=== PATIENT | female | born 1995 | race Caucasian/White ===

== ENCOUNTER 2018-06-15 09:18 | Inpatient (IN) | payer SELFPAY ==
[~2018-06-15] VITALS: Ht 154.9 cm; Wt 83.1 kg
[~2018-06-15 09:18] MED LIST: NO MEDS
[2018-06-15 10:12] LABS: APPEARANCE,URINE CLOUDY (CLEAR); BILIRUBIN,URINE PRELIM. POSITIVE (NEGATIVE); GLUCOSE, URINE (UA) NEGATIVE (NEGATIVE); KETONES,URINE 40 mg/dL (NEGATIVE); LEUKOCYTE ESTERASE ,URINE SMALL (NEGATIVE); NITRATE,URINE POSITIVE (NEGATIVE); OCCULT BLOOD,URINE NEGATIVE (NEGATIVE); PH,URINE 5.5 (5.0-8.0); PROTEIN,URINE POS 1+ (NEGATIVE)
[2018-06-15 10:23] LABS: BACTERIA,URINE Moderate /HPF (None Seen)
[2018-06-15 10:24] LABS: MUCUS,URINE Moderate LPF (None Seen); SQUAMOUS EPITHELIAL CELL,UR Moderate /LPF (None Seen)
[2018-06-15] MEDS ORDERED: SODIUM CHLORIDE 0.9% 1,000 ML IV ONE (10:41)
[2018-06-15] MEDS ORDERED: ONDANSETRON HCL 4 MG/2 ML VIAL IVP ONE ×2 (10:45→12:30)
[2018-06-15 10:53] LABS: BASOPHILS % (AUTO) 0.4 % (0.0-2.0); EOSINOPHILS % (AUTO) 0.1 % (1.0-6.0); HEMATOCRIT 44.2 % (36-46); HEMOGLOBIN 15.5 g/dL (12.0-16.0); LYMPHOCYTES # (AUTO) 1.4 K/uL (1.0-4.8); MEAN CORPUSCULAR HEMOGLOBIN 33.1 pg (26.0-34.0); MEAN CORPUSCULAR HGB CONC 35.1 G/dL (31.0-37.0); MEAN CORPUSCULAR VOLUME 94 fL (80-100); MONOCYTES # (AUTO) 0.8 K/uL (0.1-1.0); MONOCYTES % (AUTO) 5.3 % (2.0-9.0); NEUTROPHILS # (AUTO) 13.3 K/uL (1.8-7.7); NEUTROPHILS % (AUTO) 85.2 % (40.0-70.0); PLATELET COUNT (AUTO) 272 K/uL (150-450); RED BLOOD CELL COUNT(AUTO) 4.69 MIL/uL (4.00-5.20); RED CELL DISTRIBUTION WIDTH 14.4 % (11.5-14.5)
[2018-06-15 11:20] LABS: ALANINE AMINOTRANSFERASE 276 U/L (12-78); ALBUMIN 3.9 g/dL (3.4-5.0); ALKALINE PHOSPHATASE 111 U/L (46-116); ANION GAP 11 mmol/L (8-16); ASPARTATE AMINOTRANSFERASE 906 U/L (15-37); BILIRUBIN,TOTAL 1.8 mg/dL (0.1-1.0); CALCIUM, TOTAL 9.6 mg/dL (8.8-10.5); CARBON DIOXIDE 30 mmol/L (22-29); CHLORIDE 97 mmol/L (98-107); CREATININE 0.74 mg/dL (0.60-1.30); GLOMERULAR FILTR. RATE CALC > 60 mL/min (>60); GLUCOSE,RANDOM 101 mg/dL (70-110); HCG,QUANTITATIVE < 1 mIU/mL (0-6); SODIUM SERUM 138 mmol/L (136-145); UREA NITROGEN, BLOOD 10 mg/dL (7-18)
[2018-06-15 11:31] LABS: POTASSIUM 2.9 mmol/L (3.5-5.1)
[2018-06-15] MEDS ORDERED: LORazepam 2 MG/ML VIAL IVP ONE (12:30)
[2018-06-15] MEDS ORDERED: BARIUM SULFATE 0.1% SUSPENSION 450 ML BOTTLE PO ONE (12:30)
[2018-06-15] MEDS ORDERED: POTASSIUM CHL 40 MEQ/D5-0.45NS 1,000 ML IV ONE (12:30)
[2018-06-15] MEDS ORDERED: CefTRIAXone SODIUM 1 GM in DEXTROSE 5%-WATER 10 ML IV ONE (12:30)
[2018-06-15] MEDS ORDERED: KETOROLAC TROMETHAMINE 30 MG/ML VIAL IVP ONE ×2 (12:30→19:00)
[2018-06-15] MEDS ORDERED: IOVERSOL 350 MG/ML 150 ML VIAL ONE (13:37)
[2018-06-15] MEDS ORDERED: SODIUM CHLORIDE 0.9% 100 ML ONE (13:37)
[2018-06-15 14:22] LABS: LIPASE 976 U/L (73-393)
[2018-06-15 15:24] LABS: ANION GAP 7 mmol/L (8-16); CALCIUM, TOTAL 8.2 mg/dL (8.8-10.5); CARBON DIOXIDE 28 mmol/L (22-29); CHLORIDE 99 mmol/L (98-107); CREATININE 0.69 mg/dL (0.60-1.30); GLOMERULAR FILTR. RATE CALC > 60 mL/min (>60); GLUCOSE,RANDOM 77 mg/dL (70-110); POTASSIUM 3.2 mmol/L (3.5-5.1); SODIUM SERUM 134 mmol/L (136-145); UREA NITROGEN, BLOOD 8 mg/dL (7-18)
[2018-06-15 15:30] LABS: ALANINE AMINOTRANSFERASE 228 U/L (12-78); ALBUMIN 3.1 g/dL (3.4-5.0); ALKALINE PHOSPHATASE 88 U/L (46-116); ASPARTATE AMINOTRANSFERASE 639 U/L (15-37); TOTAL PROTEIN, SERUM 6.4 g/dL (6.4-8.2)
[2018-06-15] MEDS ORDERED: GADOBUTROL 1 MMOL/ML 10 ML VIAL IVP ONE (15:53)
[2018-06-15] MEDS ORDERED: CIPROFLOXACIN 400 MG/D5% WATER 200 ML IV ONE (16:30)
[2018-06-15] MEDS ORDERED: CeFAZolin 1 GM/DEXTROSE 50 ML IV ONE (16:30)
[2018-06-15] MEDS ORDERED: ONDANSETRON HCL 4 MG/2 ML VIAL IVP PRN ×2 (19:00→21:15)
[2018-06-15] MEDS ORDERED: MORPHINE SULFATE 2 MG/ML SYRINGE IVP PRN (19:00)
[2018-06-15] MEDS ORDERED: 0.9% SODIUM CHLORIDE 10 ML SYRINGE IVP PRN (19:00)
[2018-06-15 20:08] VITALS: BP 129/81
[2018-06-15] MEDS ORDERED: MAGNESIUM HYDROXIDE SUSPENSION 30 ML UDCUP PO PRN (21:15)
[2018-06-15] MEDS ORDERED: POTASSIUM CHL 10 MEQ/WATER 50 ML IV PRN (21:15)
[2018-06-15] MEDS: SODIUM CHLORIDE 0.9% 1,000 ML IV SCH (21:25)
[2018-06-15] MEDS: POTASSIUM CHLORIDE 20 MEQ ER TABLET PO PRN (21:25)
[2018-06-15] MEDS: MORPHINE SULFATE 2 MG/ML SYRINGE IVP PRN (21:35)
[2018-06-15 23:40] VITALS: BP 135/68
[2018-06-16 00:05] LABS: AMPHET/METH SCREEN,URINE NEGATIVE (NEGATIVE); BARBITURATE SCREEN, URINE NEGATIVE (NEGATIVE); BENZODIAZEPINES SCREEN,URINE NEGATIVE (NEGATIVE); CANNABINOID SCREEN,URINE POSITIVE (NEGATIVE); COCAINE SCREEN,URINE NEGATIVE (NEGATIVE); METHADONE SCREEN, URINE NEGATIVE (NEGATIVE); OPIATE SCREEN,URINE POSITIVE (NEGATIVE); PHENCYCLIDINE SCREEN,URINE NEGATIVE (NEGATIVE)
[2018-06-16 05:51] VITALS: BP 137/88
[2018-06-16 06:27] LABS: BASOPHILS % (AUTO) 0.4 % (0.0-2.0); HEMATOCRIT 38.9 % (36-46); HEMOGLOBIN 13.7 g/dL (12.0-16.0); LYMPHOCYTES # (AUTO) 2.3 K/uL (1.0-4.8); LYMPHOCYTES % (AUTO) 23.3 % (22.0-44.0); MEAN CORPUSCULAR HEMOGLOBIN 33.7 pg (26.0-34.0); MEAN CORPUSCULAR HGB CONC 35.2 G/dL (31.0-37.0); MEAN CORPUSCULAR VOLUME 96 fL (80-100); MONOCYTES # (AUTO) 0.9 K/uL (0.1-1.0); MONOCYTES % (AUTO) 9.2 % (2.0-9.0); NEUTROPHILS # (AUTO) 6.6 K/uL (1.8-7.7); NEUTROPHILS % (AUTO) 65.1 % (40.0-70.0); PLATELET COUNT (AUTO) 233 K/uL (150-450); RED BLOOD CELL COUNT(AUTO) 4.06 MIL/uL (4.00-5.20); RED CELL DISTRIBUTION WIDTH 14.2 % (11.5-14.5)
[2018-06-16 06:43] LABS: ALANINE AMINOTRANSFERASE 201 U/L (12-78); ALBUMIN 2.9 g/dL (3.4-5.0); ALKALINE PHOSPHATASE 83 U/L (46-116); ANION GAP 8 mmol/L (8-16); ASPARTATE AMINOTRANSFERASE 400 U/L (15-37); BILIRUBIN,TOTAL 1.1 mg/dL (0.1-1.0); CALCIUM, TOTAL 8.3 mg/dL (8.8-10.5); CARBON DIOXIDE 26 mmol/L (22-29); CHLORIDE 101 mmol/L (98-107); CREATININE 0.48 mg/dL (0.60-1.30); GLOMERULAR FILTR. RATE CALC > 60 mL/min (>60); GLUCOSE,RANDOM 76 mg/dL (70-110); LIPASE 663 U/L (73-393); SODIUM SERUM 135 mmol/L (136-145); TOTAL PROTEIN, SERUM 6.2 g/dL (6.4-8.2); UREA NITROGEN, BLOOD 6 mg/dL (7-18)
[2018-06-16] MEDS: POTASSIUM CHLORIDE 20 MEQ ER TABLET PO PRN ×2 (06:53→14:22)
[2018-06-16 07:03] VITALS: BP 123/77
[2018-06-16] MEDS: PANTOPRAZOLE SODIUM 40 MG/VIAL IVP SCH (08:14)
[2018-06-16] MEDS: DOCUSATE SODIUM 100 MG CAPSULE PO SCH ×2 (08:14→19:49)
[2018-06-16] MEDS: MORPHINE SULFATE 2 MG/ML SYRINGE IVP PRN ×4 (08:18→23:54)
[2018-06-16 11:31] VITALS: BP 130/91
[2018-06-16] MEDS: CefTRIAXone SODIUM 1 GM in DEXTROSE 5%-WATER 10 ML IV SCH (12:09)
[2018-06-16 15:33] VITALS: BP 139/71
[2018-06-16] MEDS: ACETAMINOPHEN 325 MG TABLET PO PRN (15:41)
[2018-06-16 19:40] VITALS: BP 128/80
[2018-06-17 00:04] VITALS: BP 94/56
[2018-06-17 03:58] VITALS: BP 132/78
[2018-06-17] MEDS: MORPHINE SULFATE 2 MG/ML SYRINGE IVP PRN ×2 (04:37→08:28)
[2018-06-17 06:21] LABS: ALANINE AMINOTRANSFERASE 157 U/L (12-78); ALKALINE PHOSPHATASE 80 U/L (46-116); ANION GAP 9 mmol/L (8-16); ASPARTATE AMINOTRANSFERASE 202 U/L (15-37); BILIRUBIN,TOTAL 0.8 mg/dL (0.1-1.0); CARBON DIOXIDE 25 mmol/L (22-29); CHLORIDE 100 mmol/L (98-107); CREATININE 0.48 mg/dL (0.60-1.30); GLOMERULAR FILTR. RATE CALC > 60 mL/min (>60); GLUCOSE,RANDOM 78 mg/dL (70-110); LIPASE 533 U/L (73-393); POTASSIUM 3.5 mmol/L (3.5-5.1); SODIUM SERUM 134 mmol/L (136-145); TOTAL PROTEIN, SERUM 6.4 g/dL (6.4-8.2); UREA NITROGEN, BLOOD 4 mg/dL (7-18)
[2018-06-17 07:34] VITALS: BP 134/57
[2018-06-17] MEDS: PANTOPRAZOLE SODIUM 40 MG/VIAL IVP SCH (08:18)
[2018-06-17] MEDS: SODIUM CHLORIDE 0.9% 1,000 ML IV SCH (08:18)
[2018-06-17] MEDS: DOCUSATE SODIUM 100 MG CAPSULE PO SCH (08:19)
[2018-06-17 11:10] VITALS: BP 126/82
[2018-06-17] MEDS: ACETAMINOPHEN 325 MG TABLET PO PRN (13:16)
[2018-06-17] MEDS: CefTRIAXone SODIUM 1 GM in DEXTROSE 5%-WATER 10 ML IV SCH (13:17)
== END 2018-06-17 15:30 | disposition home or self-care (01) | DRG 432 ==
LOC: EMS 09:19 → 6N 18:57
PROVIDERS: ADMIT Internal Medicine; ATTEND Internal Medicine
DX: K70.10 Alcoholic hepatitis without ascites (principal); K85.90 Acute pancreatitis without necrosis or infection, unspecified; N39.0 Urinary tract infection, site not specified; F17.210 Nicotine dependence, cigarettes, uncomplicated; F12.90 Cannabis use, unspecified, uncomplicated; R74.0 Nonspecific elevation of levels of transaminase and lactic acid dehydrogenase [LDH]; F10.10 Alcohol abuse, uncomplicated; Y90.9 Presence of alcohol in blood, level not specified; E66.9 Obesity, unspecified; Z68.34 Body mass index [BMI] 34.0-34.9, adult
CPT/HCPCS: 74177; 74183; 80307; 84132; 87086; 96365; 96368; 96375; 96376; 99285; A9585; C9113; J0690; J0696; J0744; J1885; J2060; J2270; J2405; J3480; J7030; J7050; J7060

== ENCOUNTER 2018-12-02 15:00 | Emergency (ER) | payer SELFPAY ==
[~2018-12-02] VITALS: Ht 154.9 cm; Wt 81.5 kg
[2018-12-02] MEDS ORDERED: SODIUM CHLORIDE 0.9% 1,000 ML IV ONE (16:00)
[2018-12-02 16:03] LABS: APPEARANCE,URINE CLOUDY (CLEAR); GLUCOSE, URINE (UA) NEGATIVE (NEGATIVE); KETONES,URINE TRACE mg/dL (NEGATIVE); LEUKOCYTE ESTERASE ,URINE MODERATE (NEGATIVE); NITRATE,URINE NEGATIVE (NEGATIVE); OCCULT BLOOD,URINE TRACE (NEGATIVE); PH,URINE 7.5 (5.0-8.0); PROTEIN,URINE POS 1+ (NEGATIVE)
[2018-12-02 16:09] LABS: BASOPHILS % (AUTO) 0.3 % (0.0-2.0); EOSINOPHILS % (AUTO) 0 % (1.0-6.0); HEMATOCRIT 46.6 % (36-46); HEMOGLOBIN 15.9 g/dL (12.0-16.0); LYMPHOCYTES # (AUTO) 1.7 K/uL (1.0-4.8); LYMPHOCYTES % (AUTO) 11.4 % (22.0-44.0); MEAN CORPUSCULAR HEMOGLOBIN 32.5 pg (26.0-34.0); MEAN CORPUSCULAR HGB CONC 34.1 G/dL (31.0-37.0); MEAN CORPUSCULAR VOLUME 95 fL (80-100); MONOCYTES # (AUTO) 1.4 K/uL (0.1-1.0); NEUTROPHILS # (AUTO) 11.9 K/uL (1.8-7.7); NEUTROPHILS % (AUTO) 79.3 % (40.0-70.0); PLATELET COUNT (AUTO) 286 K/uL (150-450); RED BLOOD CELL COUNT(AUTO) 4.91 MIL/uL (4.00-5.20); RED CELL DISTRIBUTION WIDTH 14.6 % (11.5-14.5)
[2018-12-02] MEDS ORDERED: FAMOTIDINE 10 MG/ML 2 ML VIAL IVP ONE (16:15)
[2018-12-02] MEDS ORDERED: DICYCLOMINE HCL 20 MG TABLET PO ONE (16:15)
[2018-12-02 16:18] LABS: BILIRUBIN,URINE PRELIM. POSITIVE (NEGATIVE)
[2018-12-02 16:21] LABS: RBC,URINE 0-2 /HPF (0-2)
[2018-12-02 16:23] LABS: BACTERIA,URINE Rare /HPF (None Seen); SQUAMOUS EPITHELIAL CELL,UR Few /LPF (None Seen)
[2018-12-02 16:33] LABS: ANION GAP 10 mmol/L (8-16); CALCIUM, TOTAL 9.5 mg/dL (8.8-10.5); CARBON DIOXIDE 33 mmol/L (22-29); CHLORIDE 95 mmol/L (98-107); CREATININE 0.69 mg/dL (0.60-1.30); GLOMERULAR FILTR. RATE CALC > 60 mL/min (>60); GLUCOSE,RANDOM 117 mg/dL (70-110); POTASSIUM 3.3 mmol/L (3.5-5.1); SODIUM SERUM 138 mmol/L (136-145); UREA NITROGEN, BLOOD 6 mg/dL (7-18)
[2018-12-02 16:44] LABS: ALANINE AMINOTRANSFERASE 69 U/L (12-78); ALBUMIN 3.9 g/dL (3.4-5.0); ALKALINE PHOSPHATASE 133 U/L (46-116); ASPARTATE AMINOTRANSFERASE 102 U/L (15-37); BILIRUBIN,TOTAL 1.1 mg/dL (0.1-1.0); HCG,QUANTITATIVE < 1 mIU/mL (0-6); LIPASE 141 U/L (73-393); TOTAL PROTEIN, SERUM 8.5 g/dL (6.4-8.2)
[2018-12-02] MEDS ORDERED: ONDANSETRON HCL 4 MG/2 ML VIAL IVP ONE (16:45)
[2018-12-02 18:04] VITALS: BP 141/98
== END 2018-12-02 18:15 | disposition home or self-care (01) ==
LOC: EMS 15:01
DX: R11.2 Nausea with vomiting, unspecified (principal); D72.829 Elevated white blood cell count, unspecified; R74.0 Nonspecific elevation of levels of transaminase and lactic acid dehydrogenase [LDH]; R10.9 Unspecified abdominal pain; F12.90 Cannabis use, unspecified, uncomplicated; F17.210 Nicotine dependence, cigarettes, uncomplicated
CPT/HCPCS: 36415; 76705; 80053; 81001; 83690; 84702; 85025; 87086; 96361; 96374; 96375; 99284; J2405; J3490; J7030

== ENCOUNTER 2019-07-20 06:43 | Inpatient (IN) | payer SELFPAY ==
[~2019-07-20] VITALS: Ht 154.9 cm; Wt 80.6 kg
[2019-07-20 07:21] LABS: BASOPHILS % (AUTO) 0.4 % (0.0-2.0); EOSINOPHILS % (AUTO) 0.4 % (1.0-6.0); HEMATOCRIT 46.9 % (36-46); HEMOGLOBIN 15.9 g/dL (12.0-16.0); LYMPHOCYTES # (AUTO) 1.7 K/uL (1.0-4.8); MEAN CORPUSCULAR VOLUME 97 fL (80-100); MONOCYTES % (AUTO) 8.6 % (2.0-9.0); NEUTROPHILS # (AUTO) 8.7 K/uL (1.8-7.7); NEUTROPHILS % (AUTO) 75.6 % (40.0-70.0); PLATELET COUNT (AUTO) 313 K/uL (150-450); RED BLOOD CELL COUNT(AUTO) 4.83 MIL/uL (4.00-5.20); RED CELL DISTRIBUTION WIDTH 14.2 % (11.5-14.5)
[2019-07-20 07:42] LABS: APPEARANCE,URINE TURBID (CLEAR); GLUCOSE, URINE (UA) NEGATIVE (NEGATIVE); KETONES,URINE 15 mg/dL (NEGATIVE); LEUKOCYTE ESTERASE ,URINE LARGE (NEGATIVE); NITRATE,URINE POSITIVE (NEGATIVE); OCCULT BLOOD,URINE SMALL (NEGATIVE); PH,URINE 5.5 (5.0-8.0); PROTEIN,URINE POS 1+ (NEGATIVE)
[2019-07-20 07:43] LABS: BILIRUBIN,URINE PRELIM. POSITIVE (NEGATIVE)
[2019-07-20] MEDS ORDERED: SODIUM CHLORIDE 0.9% 1,000 ML IV ONE (07:45)
[2019-07-20] MEDS ORDERED: ONDANSETRON HCL 4 MG/2 ML VIAL IVP ONE ×2 (07:45→11:15)
[2019-07-20] MEDS ORDERED: ACETAMINOPHEN 500 MG TABLET PO ONE (07:45)
[2019-07-20] MEDS ORDERED: KETOROLAC TROMETHAMINE 30 MG/ML VIAL IVP ONE (07:45)
[2019-07-20 07:46] LABS: ALANINE AMINOTRANSFERASE 69 U/L (12-78); ALBUMIN 3.8 g/dL (3.4-5.0); ALKALINE PHOSPHATASE 129 U/L (46-116); ANION GAP 7 mmol/L (8-16); ASPARTATE AMINOTRANSFERASE 137 U/L (15-37); BILIRUBIN,TOTAL 2.1 mg/dL (0.1-1.0); CALCIUM, TOTAL 9.6 mg/dL (8.8-10.5); CHLORIDE 87 mmol/L (98-107); CREATININE 0.72 mg/dL (0.60-1.30); GLOMERULAR FILTR. RATE CALC > 60 mL/min (>60); GLUCOSE,RANDOM 128 mg/dL (70-110); HCG,QUANTITATIVE < 1 mIU/mL (0-6); LIPASE 345 U/L (73-393); SODIUM SERUM 135 mmol/L (136-145); TOTAL PROTEIN, SERUM 7.8 g/dL (6.4-8.2); UREA NITROGEN, BLOOD 11 mg/dL (7-18)
[2019-07-20 07:49] LABS: BACTERIA,URINE Many /HPF (None Seen); SQUAMOUS EPITHELIAL CELL,UR Many /LPF (None Seen)
[2019-07-20 07:51] LABS: CARBON DIOXIDE 41 mmol/L (22-29)
[2019-07-20] MEDS ORDERED: POTASSIUM CHL 10 MEQ/WATER 50 ML IV ONE (08:30)
[2019-07-20] MEDS ORDERED: POTASSIUM CHLORIDE 40 MEQ in SODIUM CHLORIDE 0.45% 1,000 ML IV ONE (08:45)
[2019-07-20] MEDS ORDERED: 0.9% SODIUM CHLORIDE 10 ML SYRINGE IVP PRN (09:30)
[2019-07-20] MEDS ORDERED: POTASSIUM CHLORIDE 10% 40 MEQ/30 ML LIQUID UDCUP PO ONE ×2 (09:30→10:30)
[2019-07-20] MEDS ORDERED: ONDANSETRON HCL 4 MG/2 ML VIAL IVP PRN (09:30)
[2019-07-20] MEDS ORDERED: ACETAMINOPHEN 325 MG TABLET PO PRN ×2 (09:30→12:15)
[2019-07-20] MEDS ORDERED: METOCLOPRAMIDE HCL 5 MG/ML 2 ML VIAL IVP ONE (11:45)
[2019-07-20] MEDS ORDERED: MAGNESIUM HYDROXIDE SUSPENSION 30 ML UDCUP PO PRN (12:15)
[2019-07-20] MEDS ORDERED: BISACODYL 10 MG RECTAL RECTAL SUPPOSITORY PR PRN (12:15)
[2019-07-20] MEDS ORDERED: HYDROCODONE/ACETAMINOPHEN 5-325 MG TABLET PO PRN (12:15)
[2019-07-20] MEDS ORDERED: ZOLPIDEM TARTRATE 5 MG TABLET PO PRN (12:15)
[2019-07-20] MEDS ORDERED: POTASSIUM CHLORIDE 20 MEQ ER TABLET PO PRN (12:15)
[2019-07-20] MEDS: MetroNIDAZOLE 500 MG/NACL 100 ML IV SCH ×2 (13:35→22:07)
[2019-07-20] MEDS: CIPROFLOXACIN 400 MG/D5% WATER 200 ML IV SCH (14:40)
[2019-07-20] MEDS: POTASSIUM CHLORIDE 40 MEQ in SODIUM CHLORIDE 0.9% 1,000 ML IV SCH (15:54)
[2019-07-20] MEDS ORDERED: POTASSIUM CHL 10 MEQ/WATER 50 ML IV PRN (16:15)
[2019-07-20] MEDS: POTASSIUM CHL 10 MEQ/WATER 50 ML IV PRN ×4 (16:23→22:16)
[2019-07-20 17:39] VITALS: BP 131/63
[2019-07-20 19:51] VITALS: BP 137/86
[2019-07-20] MEDS: ONDANSETRON HCL 4 MG/2 ML VIAL IVP PRN (20:16)
[2019-07-20] MEDS: DOCUSATE SODIUM 100 MG CAPSULE PO SCH (20:17)
[2019-07-20] MEDS ORDERED: SODIUM CHLORIDE 0.9% 250 ML IV ONE (21:20)
[2019-07-20 23:16] VITALS: BP 128/74
[2019-07-21] MEDS: POTASSIUM CHLORIDE 40 MEQ in SODIUM CHLORIDE 0.9% 1,000 ML IV SCH (00:03)
[2019-07-21] MEDS: POTASSIUM CHL 10 MEQ/WATER 50 ML IV PRN ×12 (00:18→23:07)
[2019-07-21] MEDS: ONDANSETRON HCL 4 MG/2 ML VIAL IVP PRN (01:46)
[2019-07-21] MEDS: CIPROFLOXACIN 400 MG/D5% WATER 200 ML IV SCH ×2 (01:50→14:42)
[2019-07-21 04:47] VITALS: BP 126/68
[2019-07-21] MEDS: MetroNIDAZOLE 500 MG/NACL 100 ML IV SCH ×3 (05:24→21:02)
[2019-07-21 06:25] LABS: BASOPHILS % (AUTO) 0.4 % (0.0-2.0); EOSINOPHILS % (AUTO) 0.4 % (1.0-6.0); HEMATOCRIT 41.1 % (36-46); HEMOGLOBIN 13.8 g/dL (12.0-16.0); LYMPHOCYTES # (AUTO) 1.9 K/uL (1.0-4.8); LYMPHOCYTES % (AUTO) 20.6 % (22.0-44.0); MEAN CORPUSCULAR HEMOGLOBIN 33.2 pg (26.0-34.0); MEAN CORPUSCULAR HGB CONC 33.7 G/dL (31.0-37.0); MEAN CORPUSCULAR VOLUME 99 fL (80-100); MONOCYTES # (AUTO) 0.8 K/uL (0.1-1.0); MONOCYTES % (AUTO) 8.5 % (2.0-9.0); NEUTROPHILS # (AUTO) 6.5 K/uL (1.8-7.7); NEUTROPHILS % (AUTO) 70.1 % (40.0-70.0); PLATELET COUNT (AUTO) 258 K/uL (150-450); RED BLOOD CELL COUNT(AUTO) 4.17 MIL/uL (4.00-5.20); RED CELL DISTRIBUTION WIDTH 14.2 % (11.5-14.5)
[2019-07-21 06:45] LABS: ANION GAP 8 mmol/L (8-16); CALCIUM, TOTAL 8.7 mg/dL (8.8-10.5); CARBON DIOXIDE 34 mmol/L (22-29); CHLORIDE 94 mmol/L (98-107); CREATININE 0.59 mg/dL (0.60-1.30); GLOMERULAR FILTR. RATE CALC > 60 mL/min (>60); GLUCOSE,RANDOM 94 mg/dL (70-110); SODIUM SERUM 136 mmol/L (136-145); UREA NITROGEN, BLOOD 8 mg/dL (7-18)
[2019-07-21 06:51] LABS: POTASSIUM 2.4 mmol/L (3.5-5.1)
[2019-07-21 07:35] VITALS: BP 140/56
[2019-07-21] MEDS: MORPHINE SULFATE 2 MG/ML SYRINGE IVP PRN (08:09)
[2019-07-21] MEDS: PANTOPRAZOLE SODIUM 40 MG DR TABLET PO SCH (08:09)
[2019-07-21] MEDS: DOCUSATE SODIUM 100 MG CAPSULE PO SCH ×2 (08:09→21:00)
[2019-07-21 11:24] VITALS: BP 156/65
[2019-07-21] MEDS ORDERED: MAGNESIUM SULFATE 4 GM/WATER 100 ML IV PRN (11:30)
[2019-07-21] MEDS ORDERED: MAGNESIUM SULFATE 2 GM/WATER 50 ML IV PRN (11:30)
[2019-07-21] MEDS ORDERED: SODIUM CHLORIDE 0.9% 250 ML IV ONE (15:33)
[2019-07-21 16:14] VITALS: BP 135/79
[2019-07-21] MEDS: MAGNESIUM OXIDE 400 MG TABLET PO PRN (16:55)
[2019-07-21 19:49] VITALS: BP 138/77
[2019-07-22] MEDS: ONDANSETRON HCL 4 MG/2 ML VIAL IVP PRN ×3 (02:03→19:45)
[2019-07-22] MEDS: CIPROFLOXACIN 400 MG/D5% WATER 200 ML IV SCH ×2 (02:08→15:40)
[2019-07-22] MEDS: MAGNESIUM OXIDE 400 MG TABLET PO PRN ×4 (02:56→21:35)
[2019-07-22] MEDS: POTASSIUM CHL 10 MEQ/WATER 50 ML IV PRN ×3 (03:02→05:18)
[2019-07-22 03:13] VITALS: BP 148/77
[2019-07-22] MEDS: POTASSIUM CHLORIDE 40 MEQ in SODIUM CHLORIDE 0.9% 1,000 ML IV SCH ×2 (04:19→21:34)
[2019-07-22] MEDS: MetroNIDAZOLE 500 MG/NACL 100 ML IV SCH ×3 (05:19→21:35)
[2019-07-22 06:08] LABS: BASOPHILS % (AUTO) 0.2 % (0.0-2.0); EOSINOPHILS % (AUTO) 0.3 % (1.0-6.0); HEMATOCRIT 40.8 % (36-46); HEMOGLOBIN 13.6 g/dL (12.0-16.0); LYMPHOCYTES # (AUTO) 1.8 K/uL (1.0-4.8); LYMPHOCYTES % (AUTO) 17.5 % (22.0-44.0); MEAN CORPUSCULAR HEMOGLOBIN 33.2 pg (26.0-34.0); MEAN CORPUSCULAR HGB CONC 33.3 G/dL (31.0-37.0); MEAN CORPUSCULAR VOLUME 100 fL (80-100); MONOCYTES # (AUTO) 0.8 K/uL (0.1-1.0); MONOCYTES % (AUTO) 7.6 % (2.0-9.0); NEUTROPHILS # (AUTO) 7.5 K/uL (1.8-7.7); NEUTROPHILS % (AUTO) 74.4 % (40.0-70.0); PLATELET COUNT (AUTO) 260 K/uL (150-450); RED BLOOD CELL COUNT(AUTO) 4.09 MIL/uL (4.00-5.20); RED CELL DISTRIBUTION WIDTH 14.8 % (11.5-14.5)
[2019-07-22 06:23] LABS: ANION GAP 6 mmol/L (8-16); CARBON DIOXIDE 32 mmol/L (22-29); CHLORIDE 99 mmol/L (98-107); CREATININE 0.64 mg/dL (0.60-1.30); GLOMERULAR FILTR. RATE CALC > 60 mL/min (>60); GLUCOSE,RANDOM 116 mg/dL (70-110); POTASSIUM 3.2 mmol/L (3.5-5.1); SODIUM SERUM 137 mmol/L (136-145); UREA NITROGEN, BLOOD 6 mg/dL (7-18)
[2019-07-22 07:39] VITALS: BP 147/76
[2019-07-22] MEDS: DOCUSATE SODIUM 100 MG CAPSULE PO SCH ×2 (08:27→21:00)
[2019-07-22] MEDS: MORPHINE SULFATE 2 MG/ML SYRINGE IVP PRN ×2 (08:37→19:45)
[2019-07-22] MEDS: POTASSIUM CHLORIDE 10% 40 MEQ/30 ML LIQUID UDCUP PO PRN ×2 (10:05→16:47)
[2019-07-22] MEDS: METOCLOPRAMIDE HCL 5 MG/ML 2 ML VIAL IVP SCH ×2 (10:06→15:38)
[2019-07-22] MEDS: PANTOPRAZOLE SODIUM 40 MG DR TABLET PO SCH (10:06)
[2019-07-22 11:31] VITALS: BP 134/94
[2019-07-22] MEDS ORDERED: ONDA4 PO (11:51)
[2019-07-22 15:36] VITALS: BP 141/98
[2019-07-22 19:42] VITALS: BP 137/77
[2019-07-22] MEDS ORDERED: SODIUM CHLORIDE 0.9% 100 ML ONE (20:52)
== END 2019-07-22 22:50 | disposition home or self-care (01) | DRG 392 ==
LOC: EMS 06:45 → 5S 16:15
PROVIDERS: ADMIT Internal Medicine; ATTEND Internal Medicine
DX: K52.9 Noninfective gastroenteritis and colitis, unspecified (principal); E87.1 Hypo-osmolality and hyponatremia; E87.6 Hypokalemia; F17.210 Nicotine dependence, cigarettes, uncomplicated; F12.90 Cannabis use, unspecified, uncomplicated
CPT/HCPCS: 83735; 84132; 96374; 96375; G0378; J0744; J1885; J2270; J2405; J2765; J3480; J3490; J7030; J7050

== ENCOUNTER 2019-11-19 17:25 | Inpatient (IN) | payer MEDICAID ==
[~2019-11-19] VITALS: Ht 152.4 cm; Wt 74.2 kg
[~2019-11-19 17:25] MED LIST changes: -NO MEDS; +ONDA-104 PO
[2019-11-19 18:09] LABS: BASOPHILS % (AUTO) 0.4 % (0.0-2.0); EOSINOPHILS % (AUTO) 0 % (1.0-6.0); HEMATOCRIT 45.5 % (36-46); HEMOGLOBIN 15.6 g/dL (12.0-16.0); LYMPHOCYTES # (AUTO) 1.8 K/uL (1.0-4.8); LYMPHOCYTES % (AUTO) 11.3 % (22.0-44.0); MEAN CORPUSCULAR HEMOGLOBIN 35.1 pg (26.0-34.0); MEAN CORPUSCULAR HGB CONC 34.3 G/dL (31.0-37.0); MEAN CORPUSCULAR VOLUME 102 fL (80-100); MONOCYTES # (AUTO) 1.2 K/uL (0.1-1.0); MONOCYTES % (AUTO) 7.3 % (2.0-9.0); NEUTROPHILS # (AUTO) 13.1 K/uL (1.8-7.7); PLATELET COUNT (AUTO) 352 K/uL (150-450); RED BLOOD CELL COUNT(AUTO) 4.45 MIL/uL (4.00-5.20); RED CELL DISTRIBUTION WIDTH 14.2 % (11.5-14.5)
[2019-11-19 18:33] LABS: ALANINE AMINOTRANSFERASE 141 U/L (12-78); ALBUMIN 3.7 g/dL (3.4-5.0); ALKALINE PHOSPHATASE 250 U/L (46-116); ANION GAP 11 mmol/L (8-16); ASPARTATE AMINOTRANSFERASE 270 U/L (15-37); BILIRUBIN,TOTAL 1.5 mg/dL (0.1-1.0); CALCIUM, TOTAL 9.6 mg/dL (8.8-10.5); CARBON DIOXIDE 33 mmol/L (22-29); CHLORIDE 91 mmol/L (98-107); CREATININE 0.64 mg/dL (0.60-1.30); GLOMERULAR FILTR. RATE CALC > 60 mL/min (>60); GLUCOSE,RANDOM 146 mg/dL (70-110); HCG,QUANTITATIVE < 1 mIU/mL (0-6); LIPASE 1299 U/L (73-393); SODIUM SERUM 135 mmol/L (136-145); TOTAL PROTEIN, SERUM 7.6 g/dL (6.4-8.2); UREA NITROGEN, BLOOD 5 mg/dL (7-18)
[2019-11-19 18:37] LABS: POTASSIUM 2.4 mmol/L (3.5-5.1)
[2019-11-19] MEDS ORDERED: ONDANSETRON HCL 4 MG/2 ML VIAL IVP ONE (19:00)
[2019-11-19] MEDS ORDERED: SODIUM CHLORIDE 0.9% 1,000 ML IV ONE ×2 (19:00→19:45)
[2019-11-19] MEDS: POTASSIUM CHL 10 MEQ/WATER 50 ML IV SCH ×3 (19:04→21:00)
[2019-11-19] MEDS ORDERED: SODIUM CHLORIDE 0.9% 100 ML ONE (19:22)
[2019-11-19] MEDS ORDERED: IOVERSOL 320 MG/ML 100 ML VIAL ONE (19:22)
[2019-11-19] MEDS ORDERED: FentaNYL CITRATE-PF 100 MCG/2 ML VIAL IVP ONE ×2 (19:30→20:30)
[2019-11-19 19:45] LABS: LACTIC ACID 3.5 mmol/L (0.4-2.0)
[2019-11-19] MEDS: SODIUM CHLORIDE 0.9% 1,000 ML IV SCH (21:30)
[2019-11-19] MEDS ORDERED: ONDANSETRON HCL 4 MG/2 ML VIAL IVP PRN ×2 (21:30)
[2019-11-19] MEDS ORDERED: ChlordiazePOXIDE HCL 10 MG CAPSULE PO PRN (21:30)
[2019-11-19] MEDS ORDERED: 0.9% SODIUM CHLORIDE 10 ML SYRINGE IVP PRN ×2 (21:30)
[2019-11-19] MEDS ORDERED: LORazepam 2 MG/ML VIAL IVP ONE (21:30)
[2019-11-19] MEDS ORDERED: ACETAMINOPHEN 325 MG TABLET PO PRN ×2 (21:30)
[2019-11-19] MEDS ORDERED: OxyCODONE HCL/ACETAMINOPHEN 5-325 MG TABLET PO PRN (21:30)
[2019-11-19] MEDS ORDERED: MAGNESIUM HYDROXIDE SUSPENSION 30 ML UDCUP PO PRN (21:30)
[2019-11-20 00:12] VITALS: BP 145/107
[2019-11-20] MEDS: POTASSIUM CHL 10 MEQ/WATER 50 ML IV SCH (02:02)
[2019-11-20] MEDS ORDERED: INFLUENZA VIRUS VACCINE QVS 2019-20 (3YR+)/PF 60 MCG/0.5 ML SYRINGE IM ONE (03:45)
[2019-11-20] MEDS: OxyCODONE HCL/ACETAMINOPHEN 5-325 MG TABLET PO PRN ×4 (06:12→23:33)
[2019-11-20] MEDS: SODIUM CHLORIDE 0.9% 1,000 ML IV SCH (06:12)
[2019-11-20 06:40] LABS: BASOPHILS % (AUTO) 0.3 % (0.0-2.0); EOSINOPHILS % (AUTO) 0.2 % (1.0-6.0); HEMATOCRIT 40.1 % (36-46); HEMOGLOBIN 13.6 g/dL (12.0-16.0); LYMPHOCYTES # (AUTO) 2.8 K/uL (1.0-4.8); LYMPHOCYTES % (AUTO) 17.7 % (22.0-44.0); MEAN CORPUSCULAR HGB CONC 33.9 G/dL (31.0-37.0); MEAN CORPUSCULAR VOLUME 103 fL (80-100); MONOCYTES # (AUTO) 1.1 K/uL (0.1-1.0); MONOCYTES % (AUTO) 6.9 % (2.0-9.0); NEUTROPHILS # (AUTO) 11.9 K/uL (1.8-7.7); NEUTROPHILS % (AUTO) 74.9 % (40.0-70.0); PLATELET COUNT (AUTO) 274 K/uL (150-450); RED BLOOD CELL COUNT(AUTO) 3.88 MIL/uL (4.00-5.20); RED CELL DISTRIBUTION WIDTH 14.3 % (11.5-14.5)
[2019-11-20 06:59] LABS: ALANINE AMINOTRANSFERASE 98 U/L (12-78); ALBUMIN 2.8 g/dL (3.4-5.0); ALKALINE PHOSPHATASE 181 U/L (46-116); ANION GAP 5 mmol/L (8-16); ASPARTATE AMINOTRANSFERASE 148 U/L (15-37); BILIRUBIN,TOTAL 1.2 mg/dL (0.1-1.0); CALCIUM, TOTAL 7.8 mg/dL (8.8-10.5); CARBON DIOXIDE 35 mmol/L (22-29); CHLORIDE 99 mmol/L (98-107); CREATININE 0.56 mg/dL (0.60-1.30); GLOMERULAR FILTR. RATE CALC > 60 mL/min (>60); GLUCOSE,RANDOM 85 mg/dL (70-110); SODIUM SERUM 139 mmol/L (136-145); UREA NITROGEN, BLOOD 5 mg/dL (7-18)
[2019-11-20 07:09] LABS: POTASSIUM 2.5 mmol/L (3.5-5.1)
[2019-11-20] MEDS: DOCUSATE SODIUM 100 MG CAPSULE PO SCH ×2 (09:00→20:50)
[2019-11-20] MEDS: FAMOTIDINE 10 MG/ML 2 ML VIAL IVP SCH (09:21)
[2019-11-20] MEDS: POTASSIUM CHL 10 MEQ/WATER 50 ML IV PRN ×4 (10:54→16:48)
[2019-11-20 12:08] VITALS: BP 139/78
[2019-11-20 12:20] VITALS: BP 125/86
[2019-11-20 12:32] LABS: APPEARANCE,URINE TURBID (CLEAR); BILIRUBIN,URINE PRELIM. POSITIVE (NEGATIVE); GLUCOSE, URINE (UA) NEGATIVE (NEGATIVE); KETONES,URINE TRACE mg/dL (NEGATIVE); LEUKOCYTE ESTERASE ,URINE SMALL (NEGATIVE); NITRATE,URINE POSITIVE (NEGATIVE); OCCULT BLOOD,URINE NEGATIVE (NEGATIVE); PROTEIN,URINE POS 1+ (NEGATIVE)
[2019-11-20 12:48] LABS: AMPHET/METH SCREEN,URINE NEGATIVE (NEGATIVE); BARBITURATE SCREEN, URINE NEGATIVE (NEGATIVE); BENZODIAZEPINES SCREEN,URINE NEGATIVE (NEGATIVE); CANNABINOID SCREEN,URINE POSITIVE (NEGATIVE); COCAINE SCREEN,URINE NEGATIVE (NEGATIVE); METHADONE SCREEN, URINE NEGATIVE (NEGATIVE); OPIATE SCREEN,URINE POSITIVE (NEGATIVE)
[2019-11-20 12:53] LABS: PHENCYCLIDINE SCREEN,URINE NEGATIVE (NEGATIVE)
[2019-11-20 13:00] LABS: BACTERIA,URINE None Seen /HPF (None Seen); RBC,URINE None Seen /HPF (0-2); WBC,URINE None Seen /HPF (0-5)
[2019-11-20 13:01] LABS: OTHER CRYSTALS,URINE AMMONIUM BIURATES 2+ /LPF (None Seen); SQUAMOUS EPITHELIAL CELL,UR Rare /LPF (None Seen)
[2019-11-20 16:50] VITALS: BP 127/86
[2019-11-20 20:46] VITALS: BP 135/82
[2019-11-20] MEDS: POTASSIUM CHLORIDE 20 MEQ ER TABLET PO PRN (20:49)
[2019-11-21 00:15] VITALS: BP 120/77
[2019-11-21 04:10] VITALS: BP 136/79
[2019-11-21] MEDS: POTASSIUM CHLORIDE 20 MEQ ER TABLET PO PRN (04:38)
[2019-11-21] MEDS: SODIUM CHLORIDE 0.9% 1,000 ML IV SCH ×2 (04:38→18:11)
[2019-11-21 08:18] VITALS: BP 139/97
[2019-11-21] MEDS: DOCUSATE SODIUM 100 MG CAPSULE PO SCH ×2 (08:39→21:00)
[2019-11-21] MEDS: FAMOTIDINE 10 MG/ML 2 ML VIAL IVP SCH (08:41)
[2019-11-21 09:53] LABS: POTASSIUM 3.7 mmol/L (3.5-5.1)
[2019-11-21 10:23] LABS: BASOPHILS % (AUTO) 0.3 % (0.0-2.0); EOSINOPHILS % (AUTO) 1.2 % (1.0-6.0); HEMATOCRIT 38.9 % (36-46); HEMOGLOBIN 13.1 g/dL (12.0-16.0); LYMPHOCYTES # (AUTO) 1.5 K/uL (1.0-4.8); LYMPHOCYTES % (AUTO) 13.6 % (22.0-44.0); MEAN CORPUSCULAR HEMOGLOBIN 35.2 pg (26.0-34.0); MEAN CORPUSCULAR HGB CONC 33.8 G/dL (31.0-37.0); MEAN CORPUSCULAR VOLUME 104 fL (80-100); MONOCYTES # (AUTO) 0.6 K/uL (0.1-1.0); MONOCYTES % (AUTO) 5.5 % (2.0-9.0); NEUTROPHILS # (AUTO) 8.8 K/uL (1.8-7.7); NEUTROPHILS % (AUTO) 79.4 % (40.0-70.0); PLATELET COUNT (AUTO) 248 K/uL (150-450); RED BLOOD CELL COUNT(AUTO) 3.73 MIL/uL (4.00-5.20); RED CELL DISTRIBUTION WIDTH 14.2 % (11.5-14.5)
[2019-11-21 10:32] LABS: ALANINE AMINOTRANSFERASE 115 U/L (12-78); ALKALINE PHOSPHATASE 198 U/L (46-116); ANION GAP 7 mmol/L (8-16); ASPARTATE AMINOTRANSFERASE 309 U/L (15-37); BILIRUBIN,TOTAL 1.2 mg/dL (0.1-1.0); CALCIUM, TOTAL 8.2 mg/dL (8.8-10.5); CARBON DIOXIDE 29 mmol/L (22-29); CHLORIDE 98 mmol/L (98-107); CREATININE 0.51 mg/dL (0.60-1.30); GLOMERULAR FILTR. RATE CALC > 60 mL/min (>60); GLUCOSE,RANDOM 74 mg/dL (70-110); LIPASE 500 U/L (73-393); SODIUM SERUM 134 mmol/L (136-145); TOTAL PROTEIN, SERUM 6.2 g/dL (6.4-8.2); UREA NITROGEN, BLOOD 4 mg/dL (7-18)
[2019-11-21 11:20] VITALS: BP 137/92
[2019-11-21 15:48] VITALS: BP 141/88
[2019-11-21 19:46] VITALS: BP 127/85
[2019-11-22 00:28] VITALS: BP 121/91
[2019-11-22 05:20] VITALS: BP 139/91
[2019-11-22] MEDS: SODIUM CHLORIDE 0.9% 1,000 ML IV SCH (05:27)
[2019-11-22 07:33] VITALS: BP 132/84
[2019-11-22] MEDS: FAMOTIDINE 10 MG/ML 2 ML VIAL IVP SCH (08:49)
[2019-11-22] MEDS: DOCUSATE SODIUM 100 MG CAPSULE PO SCH (08:50)
[2019-11-22] MEDS ORDERED: MULTIVITAMINS WITH MINERALS, THERAPEUTIC TABLET PO SCH (09:45)
[2019-11-22 10:48] LABS: ALANINE AMINOTRANSFERASE 112 U/L (12-78); ALKALINE PHOSPHATASE 208 U/L (46-116); ANION GAP 9 mmol/L (8-16); ASPARTATE AMINOTRANSFERASE 235 U/L (15-37); BILIRUBIN,TOTAL 1.1 mg/dL (0.1-1.0); CALCIUM, TOTAL 8.3 mg/dL (8.8-10.5); CARBON DIOXIDE 28 mmol/L (22-29); CHLORIDE 98 mmol/L (98-107); CREATININE 0.48 mg/dL (0.60-1.30); GLOMERULAR FILTR. RATE CALC > 60 mL/min (>60); GLUCOSE,RANDOM 77 mg/dL (70-110); POTASSIUM 3.4 mmol/L (3.5-5.1); SODIUM SERUM 135 mmol/L (136-145); TOTAL PROTEIN, SERUM 6.4 g/dL (6.4-8.2); UREA NITROGEN, BLOOD 1 mg/dL (7-18)
[2019-11-22 11:40] VITALS: BP 130/76
== END 2019-11-22 12:30 | disposition home or self-care (01) | DRG 432 ==
LOC: EMS 17:35 → 5S 21:51
PROVIDERS: ADMIT Internal Medicine; ATTEND Internal Medicine
DX: K70.10 Alcoholic hepatitis without ascites (principal); K85.20 Alcohol induced acute pancreatitis without necrosis or infection; E43 Unspecified severe protein-calorie malnutrition; R65.10 Systemic inflammatory response syndrome (SIRS) of non-infectious origin without acute organ dysfunction; K35.80 Unspecified acute appendicitis; F10.20 Alcohol dependence, uncomplicated; F12.90 Cannabis use, unspecified, uncomplicated; F17.210 Nicotine dependence, cigarettes, uncomplicated; E87.6 Hypokalemia; Z68.31 Body mass index [BMI] 31.0-31.9, adult; Z91.19 Patient's noncompliance with other medical treatment and regimen
CPT/HCPCS: 74177; 76705; 80307; 83605; 84132; 87040; 93005; 99291; G0480; J2060; J2405; J3010; J3480; J3490; J7030; J7050

== ENCOUNTER 2020-03-30 23:05 | Inpatient (IN) | payer SELFPAY ==
[~2020-03-30] VITALS: Ht 154.9 cm; Wt 63.4 kg
[2020-03-30 23:55] LABS: BASOPHILS % (AUTO) 0.2 % (0.0-2.0); EOSINOPHILS % (AUTO) 0 % (1.0-6.0); HEMATOCRIT 49.7 % (36-46); HEMOGLOBIN 16.5 g/dL (12.0-16.0); LYMPHOCYTES # (AUTO) 2.1 K/uL (1.0-4.8); LYMPHOCYTES % (AUTO) 12.7 % (22.0-44.0); MEAN CORPUSCULAR HEMOGLOBIN 32.8 pg (26.0-34.0); MEAN CORPUSCULAR HGB CONC 33.1 G/dL (31.0-37.0); MEAN CORPUSCULAR VOLUME 99 fL (80-100); MONOCYTES # (AUTO) 1.5 K/uL (0.1-1.0); MONOCYTES % (AUTO) 9.2 % (2.0-9.0); NEUTROPHILS # (AUTO) 12.7 K/uL (1.8-7.7); NEUTROPHILS % (AUTO) 77.9 % (40.0-70.0); PLATELET COUNT (AUTO) 307 K/uL (150-450); RED BLOOD CELL COUNT(AUTO) 5.03 MIL/uL (4.00-5.20)
[2020-03-31] MEDS ORDERED: HYDROmorphone 2 MG/ML SYRINGE IVP ONE
[2020-03-31] MEDS ORDERED: SODIUM CHLORIDE 0.9% 1,000 ML IV ONE
[2020-03-31] MEDS ORDERED: ONDANSETRON HCL 4 MG/2 ML VIAL IVP ONE
[2020-03-31] MEDS ORDERED: MAGNESIUM SULFATE 2 GM, MVI, ADULT NO.1 WITH VIT K 10 ML, THIAMINE HCL 100 MG, FOLIC AC... IV ONE ×5 (00:15)
[2020-03-31] MEDS ORDERED: LORazepam 2 MG/ML VIAL IVP ONE (00:15)
[2020-03-31 00:19] LABS: ALANINE AMINOTRANSFERASE 88 U/L (12-78); ALBUMIN 4.3 g/dL (3.4-5.0); ALKALINE PHOSPHATASE 281 U/L (46-116); ANION GAP 13 mmol/L (8-16); ASPARTATE AMINOTRANSFERASE 121 U/L (15-37); BILIRUBIN,TOTAL 1.8 mg/dL (0.1-1.0); CARBON DIOXIDE 34 mmol/L (22-29); CHLORIDE 92 mmol/L (98-107); CREATININE 0.82 mg/dL (0.60-1.30); GLOMERULAR FILTR. RATE CALC > 60 mL/min (>60); GLUCOSE,RANDOM 164 mg/dL (70-110); HCG,QUANTITATIVE 1 mIU/mL (0-6); LIPASE 656 U/L (73-393); SODIUM SERUM 139 mmol/L (136-145); UREA NITROGEN, BLOOD 8 mg/dL (7-18)
[2020-03-31 00:26] LABS: POTASSIUM 2.9 mmol/L (3.5-5.1)
[2020-03-31] MEDS ORDERED: POTASSIUM CHLORIDE 10% 40 MEQ/30 ML LIQUID UDCUP PO ONE (00:45)
[2020-03-31] MEDS ORDERED: POTASSIUM CHL 10 MEQ/WATER 50 ML IV ONE (00:45)
[2020-03-31] MEDS ORDERED: ONDANSETRON HCL 4 MG/2 ML VIAL IVP PRN ×2 (01:00→11:30)
[2020-03-31] MEDS ORDERED: 0.9% SODIUM CHLORIDE 10 ML SYRINGE IVP PRN (01:00)
[2020-03-31] MEDS ORDERED: ACETAMINOPHEN 325 MG TABLET PO PRN ×2 (01:00→11:30)
[2020-03-31] MEDS ORDERED: LORazepam 2 MG/ML VIAL IVP PRN ×2 (02:15→11:30)
[2020-03-31 03:51] VITALS: BP 119/72
[2020-03-31 07:42] VITALS: BP 131/58
[2020-03-31 10:50] VITALS: BP 127/82
[2020-03-31] MEDS ORDERED: ZOLPIDEM TARTRATE 5 MG TABLET PO PRN (11:30)
[2020-03-31] MEDS ORDERED: IPRATROPIUM BROMIDE 0.5 MG/2.5 ML NEB SOLUTION NEB PRN (11:30)
[2020-03-31] MEDS ORDERED: ALBUTEROL SULFATE 2.5 MG/0.5 ML NEB SOLUTION NEB PRN (11:30)
[2020-03-31] MEDS ORDERED: HYDROCODONE/ACETAMINOPHEN 5-325 MG TABLET PO PRN (11:30)
[2020-03-31] MEDS ORDERED: BISACODYL 10 MG RECTAL RECTAL SUPPOSITORY PR PRN (11:30)
[2020-03-31] MEDS ORDERED: MAGNESIUM HYDROXIDE SUSPENSION 30 ML UDCUP PO PRN (11:30)
[2020-03-31] MEDS: MORPHINE SULFATE 2 MG/ML SYRINGE IVP PRN ×3 (11:45→23:20)
[2020-03-31] MEDS: ChlordiazePOXIDE HCL 25 MG CAPSULE PO SCH ×3 (11:45→23:10)
[2020-03-31] MEDS: SODIUM CHLORIDE 0.45% 1,000 ML IV SCH (11:47)
[2020-03-31 12:26] LABS: APPEARANCE,URINE CLOUDY (CLEAR); GLUCOSE, URINE (UA) NEGATIVE (NEGATIVE); KETONES,URINE TRACE mg/dL (NEGATIVE); LEUKOCYTE ESTERASE ,URINE SMALL (NEGATIVE); NITRATE,URINE POSITIVE (NEGATIVE); OCCULT BLOOD,URINE NEGATIVE (NEGATIVE); PH,URINE 8.5 (5.0-8.0); PROTEIN,URINE POS 1+ (NEGATIVE)
[2020-03-31 12:27] LABS: BILIRUBIN,URINE PRELIM. POSITIVE (NEGATIVE)
[2020-03-31 12:46] LABS: BACTERIA,URINE None Seen /HPF (None Seen); RBC,URINE None Seen /HPF (0-2); SQUAMOUS EPITHELIAL CELL,UR Few /LPF (None Seen); WBC,URINE 0-2 /HPF (0-5)
[2020-03-31 14:47] VITALS: BP 125/77
[2020-03-31 16:42] LABS: MAGNESIUM 2.2 mg/dL (1.80-2.40); POTASSIUM 3.2 mmol/L (3.5-5.1)
[2020-03-31] MEDS: HEPARIN SODIUM,PORCINE 5,000 UNITS/ML VIAL SQ SCH ×2 (17:06→23:10)
[2020-03-31] MEDS ORDERED: POTASSIUM CHLORIDE 20 MEQ ER TABLET PO ONE (17:15)
[2020-03-31] MEDS ORDERED: SODIUM CHLORIDE 0.9% 1,000 ML ONE (17:30)
[2020-03-31] MEDS: POTASSIUM CHL 10 MEQ/WATER 50 ML IV SCH ×4 (17:31→21:37)
[2020-03-31] MEDS: DOCUSATE SODIUM 100 MG CAPSULE PO SCH (20:09)
[2020-03-31 20:40] VITALS: BP 110/73
[2020-03-31 23:22] VITALS: BP 118/83
[2020-04-01] MEDS: SODIUM CHLORIDE 0.45% 1,000 ML IV SCH ×2 (00:36→13:56)
[2020-04-01 05:35] VITALS: BP 110/76
[2020-04-01] MEDS: ChlordiazePOXIDE HCL 25 MG CAPSULE PO SCH ×2 (06:24→11:00)
[2020-04-01 07:39] VITALS: BP 114/80
[2020-04-01 08:32] LABS: MAGNESIUM 1.8 mg/dL (1.80-2.40); PHOSPHORUS 3.1 mg/dL (2.5-4.9); POTASSIUM 3.6 mmol/L (3.5-5.1)
[2020-04-01] MEDS: HEPARIN SODIUM,PORCINE 5,000 UNITS/ML VIAL SQ SCH ×2 (08:47→15:06)
[2020-04-01] MEDS: DOCUSATE SODIUM 100 MG CAPSULE PO SCH (08:47)
[2020-04-01] MEDS: MORPHINE SULFATE 2 MG/ML SYRINGE IVP PRN (08:58)
[2020-04-01] MEDS ORDERED: THIAMINE HCL 100 MG TABLET PO SCH (09:00)
[2020-04-01] MEDS ORDERED: MULTIVITAMINS, THERAPEUTIC TABLET PO SCH (09:00)
[2020-04-01] MEDS ORDERED: FOLIC ACID 1 MG TABLET PO SCH (09:00)
[2020-04-01 11:45] VITALS: BP 128/93
[2020-04-01 15:09] LABS: BASOPHILS % (AUTO) 1.3 % (0.0-2.0); EOSINOPHILS % (AUTO) 1.2 % (1.0-6.0); HEMATOCRIT 39.8 % (36-46); HEMOGLOBIN 12.9 g/dL (12.0-16.0); LYMPHOCYTES # (AUTO) 2.8 K/uL (1.0-4.8); LYMPHOCYTES % (AUTO) 32.5 % (22.0-44.0); MEAN CORPUSCULAR HEMOGLOBIN 33.1 pg (26.0-34.0); MEAN CORPUSCULAR HGB CONC 32.4 G/dL (31.0-37.0); MEAN CORPUSCULAR VOLUME 102 fL (80-100); MONOCYTES # (AUTO) 0.6 K/uL (0.1-1.0); MONOCYTES % (AUTO) 7.5 % (2.0-9.0); NEUTROPHILS # (AUTO) 4.9 K/uL (1.8-7.7); NEUTROPHILS % (AUTO) 57.5 % (40.0-70.0); PLATELET COUNT (AUTO) 185 K/uL (150-450); RED CELL DISTRIBUTION WIDTH 13.5 % (11.5-14.5)
[2020-04-01 15:10] VITALS: BP 116/78
[2020-04-01 15:20] LABS: ANION GAP 11 mmol/L (8-16); CALCIUM, TOTAL 8.6 mg/dL (8.8-10.5); CARBON DIOXIDE 23 mmol/L (22-29); CHLORIDE 99 mmol/L (98-107); CREATININE 0.56 mg/dL (0.60-1.30); GLOMERULAR FILTR. RATE CALC > 60 mL/min (>60); GLUCOSE,RANDOM 74 mg/dL (70-110); SODIUM SERUM 133 mmol/L (136-145); UREA NITROGEN, BLOOD 4 mg/dL (7-18)
[2020-04-01 15:35] LABS: ALANINE AMINOTRANSFERASE 123 U/L (12-78); ALBUMIN 3.4 g/dL (3.4-5.0); ALKALINE PHOSPHATASE 219 U/L (46-116); ASPARTATE AMINOTRANSFERASE 354 U/L (15-37); BILIRUBIN,TOTAL 1.5 mg/dL (0.1-1.0); TOTAL PROTEIN, SERUM 6.3 g/dL (6.4-8.2)
[2020-04-01 16:57] LABS: PLATELET MORPHOLOGY COMMENT LARGE PLTS PRESENT
== END 2020-04-01 15:30 | disposition home or self-care (01) | DRG 641 ==
LOC: EMS 23:06 → 6N 03-31 02:50
PROVIDERS: ADMIT Hospitalist; ATTEND Hospitalist
DX: E87.6 Hypokalemia (principal); K29.20 Alcoholic gastritis without bleeding; F10.10 Alcohol abuse, uncomplicated; Y90.9 Presence of alcohol in blood, level not specified; F17.200 Nicotine dependence, unspecified, uncomplicated
CPT/HCPCS: 74176; 83735; 84100; 84132; G0480; J1644; J2060; J2270; J2405; J3411; J3475; J3480; J3490; J7030

== ENCOUNTER 2020-06-10 15:48 | Emergency (ER) | payer SELFPAY ==
[~2020-06-10] VITALS: Ht 154.9 cm; Wt 61.8 kg
[2020-06-10 18:36] LABS: BASOPHILS % (AUTO) 0.3 % (0.0-2.0); EOSINOPHILS % (AUTO) 0.1 % (1.0-6.0); HEMATOCRIT 41.5 % (36-46); HEMOGLOBIN 14.3 g/dL (12.0-16.0); LYMPHOCYTES # (AUTO) 3.6 K/uL (1.0-4.8); LYMPHOCYTES % (AUTO) 28.7 % (22.0-44.0); MEAN CORPUSCULAR HEMOGLOBIN 35.1 pg (26.0-34.0); MEAN CORPUSCULAR HGB CONC 34.4 G/dL (31.0-37.0); MEAN CORPUSCULAR VOLUME 102 fL (80-100); MONOCYTES # (AUTO) 1.2 K/uL (0.1-1.0); MONOCYTES % (AUTO) 9.8 % (2.0-9.0); NEUTROPHILS # (AUTO) 7.8 K/uL (1.8-7.7); NEUTROPHILS % (AUTO) 61.1 % (40.0-70.0); PLATELET COUNT (AUTO) 369 K/uL (150-450); RED BLOOD CELL COUNT(AUTO) 4.08 MIL/uL (4.00-5.20); RED CELL DISTRIBUTION WIDTH 15.3 % (11.5-14.5)
[2020-06-10 19:00] LABS: ALANINE AMINOTRANSFERASE 176 U/L (12-78); ALBUMIN 3.9 g/dL (3.4-5.0); ALKALINE PHOSPHATASE 280 U/L (46-116); ANION GAP 6 mmol/L (8-16); ASPARTATE AMINOTRANSFERASE 348 U/L (15-37); BILIRUBIN,TOTAL 1.7 mg/dL (0.1-1.0); CALCIUM, TOTAL 9.8 mg/dL (8.8-10.5); CARBON DIOXIDE 40 mmol/L (22-29); CHLORIDE 92 mmol/L (98-107); CREATININE 0.74 mg/dL (0.60-1.30); GLOMERULAR FILTR. RATE CALC > 60 mL/min (>60); GLUCOSE,RANDOM 125 mg/dL (70-110); HCG,QUANTITATIVE < 1 mIU/mL (0-6); LIPASE 55 U/L (73-393); SODIUM SERUM 138 mmol/L (136-145); TOTAL PROTEIN, SERUM 9.4 g/dL (6.4-8.2); UREA NITROGEN, BLOOD 8 mg/dL (7-18)
[2020-06-10 19:03] LABS: POTASSIUM 2.9 mmol/L (3.5-5.1)
[2020-06-10] MEDS ORDERED: SODIUM CHLORIDE 0.9% 1,000 ML IV ONE (20:00)
[2020-06-10] MEDS ORDERED: PANTOPRAZOLE SODIUM 40 MG/VIAL IVP ONE (20:00)
[2020-06-10] MEDS ORDERED: ONDANSETRON HCL 4 MG/2 ML VIAL IVP ONE ×2 (20:00→23:00)
[2020-06-10] MEDS: POTASSIUM CHL 10 MEQ/WATER 50 ML IV SCH ×4 (20:28→23:24)
[2020-06-10 22:06] LABS: APPEARANCE,URINE CLOUDY (CLEAR); GLUCOSE, URINE (UA) NEGATIVE (NEGATIVE); KETONES,URINE 15 mg/dL (NEGATIVE); LEUKOCYTE ESTERASE ,URINE MODERATE (NEGATIVE); NITRATE,URINE POSITIVE (NEGATIVE); OCCULT BLOOD,URINE MODERATE (NEGATIVE); PH,URINE 5.5 (5.0-8.0); PROTEIN,URINE SEE CONFIRM (NEGATIVE)
[2020-06-10 22:10] LABS: BILIRUBIN,URINE PRELIM. POSITIVE (NEGATIVE)
[2020-06-10 22:12] LABS: SULFOSALICYLIC ACID,URINE 2+ (Negative)
[2020-06-10 22:13] LABS: BACTERIA,URINE Moderate /HPF (None Seen); SQUAMOUS EPITHELIAL CELL,UR Moderate /LPF (None Seen)
[2020-06-10 22:14] LABS: MUCUS,URINE Many LPF (None Seen)
[2020-06-10] MEDS ORDERED: FAMOTIDINE 20 MG TABLET PO ONE (23:00)
[2020-06-10] MEDS ORDERED: ACETAMINOPHEN 500 MG TABLET PO ONE (23:00)
[2020-06-10] MEDS ORDERED: POTASSIUM CHLORIDE 10% 40 MEQ/30 ML LIQUID UDCUP PO ONE (23:00)
[2020-06-11 00:48] VITALS: BP 124/56
== END 2020-06-11 01:21 | disposition home or self-care (01) ==
LOC: EMS 15:53
DX: K29.00 Acute gastritis without bleeding (principal); K70.30 Alcoholic cirrhosis of liver without ascites; E87.6 Hypokalemia
CPT/HCPCS: 36415; 74176; 76700; 80053; 81001; 83690; 84702; 85025; 87077; 87086; 87186; 96365; 96366; 96375; 96376; 99285; C9113; J2405; J3480